=== PATIENT | male | born 1960 | race Caucasian/White ===

== ENCOUNTER 2017-09-21 01:13 | Inpatient (IN) | payer BC ==
[2017-09-21] VITALS (9 sets, daily range): BP systolic 83–129; BP diastolic 48–81
[~2017-09-21] VITALS: Ht 182.9 cm; Wt 113.5 kg
--- NOTE | ~2017-09-21 | WRIGHTHP ---
[place], [place] PATIENT HISTORY AND PHYSICAL EXAM NAME: IRAJ ESTEVES [facility] #: [id number] UNIT #: [id number] ROOM: [facility] DOCTOR: BETZAIDA MEJIA MD BIRTHDATE: [birth year] DOS: 09/21/2017 HISTORY OF PRESENT ILLNESS: The patient is 57 years old, not known to me. The patient of Dr. Rodrigues, comes in with complaints of shortness of breath. The patient states that he was shoveling snow a couple of days ago, felt extremely tired after that, had to sit down and experienced some shortness of breath. He also became nauseous and had large emesis after that. Yesterday, he started noticing shortness of breath as he was just sitting around. He denies having any fever, any chills, any cough, any chest pains or palpitations. He has had these symptoms for almost 6 months now. He has had multiple workups including stress test. Cardiology consultation with Dr. Torres and an echocardiogram which have all been normal. PAST MEDICAL HISTORY: Significant for: 1. Coronary artery disease and history of CABG. He also has history of stent placement. 2. Moderate nicotine abuse with smoking cessation 3 months ago. 3. Benign hypertension. 4. Primary osteoarthritis. MEDICATIONS: He is on currently are Plavix 75, gemfibrozil 600 b.i.d., propranolol 120 daily, 100 mg daily, simvastatin 40 daily, Carafate 1 gram t.i.d., allopurinol 300 mg daily. SOCIAL HISTORY: Heavy smoker, quit smoking 3 months ago. Denies using any alcohol. Significant for 4 siblings who are all healthy. 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 He works in the [employer]. He is . FAMILY HISTORY: Significant for father who was murdered when he was 10. His mother who of coronary artery disease. PHYSICAL EXAMINATION: GENERAL: Today, he is awake and alert and oriented. VITAL SIGNS: Blood pressure is 83/48, pulse of 58, respirations 18, temperature 96.3. LUNGS: Diminished breath sounds. No wheezes, rales or rhonchi heard. HEART: Regular. ABDOMEN: Soft. EXTREMITIES: Without any edema. LABORATORY DATA: EKG shows diffuse ST changes in the anteroseptal leads as well as the inferior leads. Rapid flu is positive. Troponin, the first set was 0.8, has gone up to 2.070 seconds and third set is 6.070. ASSESSMENT: 1. Non-ST elevation myocardial infarction. The patient is being placed on IV heparin protocol, IV nitro. Cardiology consultation was obtained. The patient prefers to go to [facility]. We will make arrangements for him to be transferred out. 2. Benign hypertension, controlled. [place], [place] PATIENT HISTORY AND PHYSICAL EXAM NAME: IRAJ ESTEVES UNIT #: [id number] ROOM: [facility] DOCTOR: BETZAIDA MEJIA MD BIRTHDATE: [birth year] 3. Coronary artery disease. Already on Plavix and aspirin, I have not made any changes in other regimen. 4. Flu positive. Tamiflu has been started. BETZAIDA MEJIA MD CM:HISPHYS:PATIENT HISTORY AND PHYSICAL EXAMINATION 0842 [id number] BETZAIDA MEJIA MD 09/21/17 09 interface
--- NOTE | ~2017-09-21 | EKG ---
[place], [place] ELECTROCARDIOGRAM REPORT NAME: IRAJ ESTEVES UNIT #: [id number] ROOM: [facility] DOCTOR: TREMAINE GONZALEZ,ENRIQUE BIRTHDATE: [birth year] DOS: TIME: 8:27 a.m. IMPRESSION: 1. Sinus rhythm. 2. Anterolateral ST changes, suggestive of ischemia. 3. Low voltage complexes. 4. Normal QT interval. ENRIQUE PENALOZA MD CM:EKGRPT:ELECTROCARDIOGRAM REPORT [id number] ENRIQUE PENALOZA MD
[~2017-09-21 01:13] MED LIST: ALLOPURINOL300 MG; ASCRIPTIN325 MG; ENALAPRIL MALEA10 MG; Fish Oil PO; GARLIC OIL1000 MG PO; GARLIC1000 MG; GEMFIBROZIL600 MG PO; GRAPE SEED PO; Garlic PO; METOPROLOL SR25 MG; OMEPRAZOLE20 MG; PLAVIX75 MG PO; PROPRANOLOL HY120 MG PO; RED YEAST RICE600 MG; Red Yeast Rice PO; VYTORIN 10 MG-41 TA1
[2017-09-21] MEDS ORDERED: SIMVASTATIN40 MG PO (01:25)
[2017-09-21] MEDS ORDERED: ASPIRIN CHEWABL81 MG PO (01:26)
[2017-09-21] MEDS ORDERED: RESVERATROL100 MG PO (01:28)
[2017-09-21] MEDS ORDERED: CARAFATE1 G1 PO (01:28)
[2017-09-21] MEDS ORDERED: VITAMIN D5000 UNI1 PO (01:28)
[2017-09-21 01:41] LABS: HEMATOCRIT 38.4 % (42.0-52.0); HEMOGLOBIN 12.2 g/dl (14.0-18.0); MEAN CELL VOLUME 85.7 fl (80.0-94.0); MEAN CORPUSCULAR HGB 27.2 pg (27.0-31.0); MEAN CORPUSCULAR HGB CONC 31.8 g/dl (33.0-37.0); MEAN PLATELET VOLUME 12.5 fl (9.6-12.3); PLATELET COUNT AUTOMATED 234 10*3/uL (130-400); RED BLOOD COUNT 4.48 10*6/uL (4.50-5.90); RED CELL DISTRI WIDTH 15.9 % (0-14.5); WHITE BLOOD COUNT 13.5 10*3/uL (4.8-10.8)
[2017-09-21 01:52] LABS: ACT PARTIAL THROMBO TIME 30.6 SECONDS (20.8-31.5); INTERNATIONAL NORM RATIO 1.1 (2.0-3.5)
[2017-09-21 02:00] LABS: ATYPICAL LYMPHS 3 % (0-0); BASOPHILS 2 % (0-1); PLATELET SUFFICIENCY NORMAL (NORMAL); TOTAL CELLS COUNTED 100 #CELLS
[2017-09-21 02:00] LABS: ALBUMIN 3.8 gm/dl (3.1-4.5); ALKALINE PHOSPHATASE 72 U/L (45-117); BUN 24 mg/dl (7-24); CHLORIDE 103 mmol/L (98-107); CREATININE 1.44 mg/dL (0.70-1.30); POTASSIUM 4.5 mmol/L (3.5-5.1); SGOT/AST 29 IU/L (3-35); SGPT/ALT 23 U/L (12-78); SODIUM 134 mmol/L (136-145); TOTAL PROTEIN 8.1 gm/dL (6.4-8.2)
[2017-09-21 02:03] LABS: TROPONIN I 0.081 ng/ml (<0.045)
[2017-09-21 02:05] LABS: ABG BASE EXCESS -3.3 mmol/L (-2.0-2.0); ABG HCO3 23.5 mmol/l (22-26); ABG O2 SATURATION 96.9 % (95-97); ARTERIAL BLOOD GAS PCO2 51.9 mmHg (35-45); ARTERIAL BLOOD GAS PH 7.276 (7.35-7.45)
== END 2017-09-21 10:40 | disposition short-term general hospital (02) | DRG 280 ==
LOC: ED 01:13 → ICCU 02:26
PROVIDERS: Student in an Organized Health Care Education/Training Program
PROC: 5A09357 Assistance with Respiratory Ventilation, Less than 24 Consecutive Hours, Continuous Positive Airway Pressure (ICD-10-PCS; principal; 2017-09-21)
DX: I21.4 Non-ST elevation (NSTEMI) myocardial infarction (principal); J96.90 Respiratory failure, unspecified, unspecified whether with hypoxia or hypercapnia; I10 Essential (primary) hypertension; I25.10 Atherosclerotic heart disease of native coronary artery without angina pectoris; M19.91 Primary osteoarthritis, unspecified site; J11.1 Influenza due to unidentified influenza virus with other respiratory manifestations; M10.9 Gout, unspecified; R73.9 Hyperglycemia, unspecified; D72.829 Elevated white blood cell count, unspecified; Z95.1 Presence of aortocoronary bypass graft; Z79.899 Other long term (current) drug therapy; Z87.891 Personal history of nicotine dependence; Z82.49 Family history of ischemic heart disease and other diseases of the circulatory system; Z90.89 Acquired absence of other organs; Z90.49 Acquired absence of other specified parts of digestive tract; Z95.5 Presence of coronary angioplasty implant and graft

== ENCOUNTER 2017-12-02 05:06 | Emergency (ER) | payer BC ==
[~2017-12-02] VITALS: Ht 180.3 cm; Wt 90.7 kg
[~2017-12-02 05:06] MED LIST changes: +ASPIRIN CHEWABL81 MG PO; +CARAFATE1 G1 PO; +RESVERATROL100 MG PO; +SIMVASTATIN40 MG PO; +VITAMIN D5000 UNI1 PO
[2017-12-02 05:25] LABS: BASO # 0.1 10*3/uL (0.0-0.1); BASO % 0.8 % (0.0-1.0); EOS # 0.2 10*3/uL (0.0-0.4); EOS % 2.6 % (1.0-4.0); HEMATOCRIT 22.5 % (42.0-52.0); LYMPH # 2.4 10*3/uL (1.3-4.4); LYMPH % 26.9 % (27.0-41.0); MEAN CELL VOLUME 84.6 fl (80.0-94.0); MEAN CORPUSCULAR HGB 26.3 pg (27.0-31.0); MEAN CORPUSCULAR HGB CONC 31.1 g/dl (33.0-37.0); MEAN PLATELET VOLUME 9.5 fl (9.6-12.3); NEUT # 5.2 10*3/uL (2.3-7.9); NEUT % 58.4 % (47.0-73.0); PLATELET COUNT AUTOMATED 261 10*3/uL (130-400); RED BLOOD COUNT 2.66 10*6/uL (4.50-5.90); RED CELL DISTRI WIDTH 16.6 % (0-14.5); WHITE BLOOD COUNT 8.9 10*3/uL (4.8-10.8)
[2017-12-02 05:35] LABS: ACT PARTIAL THROMBO TIME 26.5 SECONDS (20.8-31.5)
[2017-12-02] MEDS ORDERED: XIFAXAN550 MG PO (05:39)
[2017-12-02] MEDS ORDERED: ALPRAZOLAM0.5 M3 PO (05:39)
[2017-12-02] MEDS ORDERED: ZOLOFT50 MG PO (05:39)
[2017-12-02 05:41] LABS: ALBUMIN 3.9 gm/dl (3.1-4.5); CREATININE 1.93 mg/dL (0.70-1.30); POTASSIUM 4.4 mmol/L (3.5-5.1); TOTAL PROTEIN 7.8 gm/dL (6.4-8.2)
[2017-12-02] MEDS ORDERED: FUROSEMIDE40 MG PO (05:41)
[2017-12-02] MEDS ORDERED: BRILINTA90 M1 PO (05:41)
[2017-12-02] MEDS ORDERED: TOPROL XL25 MG PO (05:42)
[2017-12-02 05:43] LABS: TROPONIN I 0.612 ng/ml (<0.045)
[2017-12-02 06:36] VITALS: BP 110/57
== END 2017-12-02 06:43 | disposition short-term general hospital (02) ==
LOC: ED 05:06
PROVIDERS: Emergency Medicine Emergency Medical Services
DX: R07.89 Other chest pain (principal); I25.10 Atherosclerotic heart disease of native coronary artery without angina pectoris; I50.9 Heart failure, unspecified; I10 Essential (primary) hypertension; M10.9 Gout, unspecified; Z87.891 Personal history of nicotine dependence; Z79.899 Other long term (current) drug therapy; Z79.82 Long term (current) use of aspirin

== ENCOUNTER → 2017-12-22 | Outpatient (CLI) | payer BC ==
[~2017-12-22] MED LIST changes: +ALPRAZOLAM0.5 M3 PO; +BRILINTA90 M1 PO; +FUROSEMIDE40 MG PO; +TOPROL XL25 MG PO; +XIFAXAN550 MG PO; +ZOLOFT50 MG PO
== END | disposition home or self-care (01) ==
LOC: LAB 15:18
DX: D64.9 Anemia, unspecified (principal); K92.2 Gastrointestinal hemorrhage, unspecified

== ENCOUNTER 2018-01-09 23:12 | Inpatient (IN) | payer BC ==
[~2018-01-09] VITALS: Ht 182.9 cm; Wt 120.3 kg
--- NOTE | ~2018-01-09 | DS ---
[place], [place] DISCHARGE SUMMARY [id number] UN[facility] #: [id number] ROOM: 406 DOCTOR: RODOLFO GONZALEZDINORA Marin BIRTHDATE: [birth year] DOS: 01/11/2018 DISCHARGE DIAGNOSES: 1. Chest pains related to advanced coronary artery disease and anemia, resolved. 2. History of chronic gouty arthritis. 3. Mixed hyperlipidemia. 4. Generalized anxiety disorder. 5. Morbid obesity and poor compliance with diet. 6. Coronary artery disease and coronary artery bypass grafts in 1998 with stent placements in September 2017. 7. Hiatal hernia with gastroesophageal reflux disease and esophagitis. 8. Benign essential hypertension. HOSPITAL COURSE: The patient presented with right-sided chest pains, some nausea, but no diaphoresis. The patient ruled out for myocardial infarction with serial cardiac enzymes and he was given blood transfusions for anemia and patient's chest pains resolved. The patient was seen by Dr. Alex Tinoco and no further intervention was recommended. The patient is being discharged to home to follow up at the office with me on Sunday. Anemia related to recent GI bleed, treated with transfusion with 2 units of blood because of his angina symptoms, which have resolved. Chronic gouty arthritis, asymptomatic. The patient treated with allopurinol. Mixed hyperlipidemia, has been treated with simvastatin. Coronary artery disease of the havasupai vessels with stent placements. The is patient on Brilinta. Generalized anxiety disorder, treated and controlled with Xanax. LABORATORY DATA: All cardiac enzymes are negative. Hemoglobin improved to 9.5 with blood transfusion. Normal serum electrolytes. DISCHARGE MANAGEMENT: Simvastatin 40 mg a day, aspirin 81 mg a day, sublingual nitroglycerins p.r.n., Brilinta 90 mg b.i.d., vitamin D 5000 units daily, allopurinol 300 mg daily, Ranexa 500 mg b.i.d., metoprolol 25 mg daily, lisinopril 10 mg daily, gemfibrozil 600 mg b.i.d., furosemide 40 mg a day, Xanax 0.5 mg b.i.d. p.r.n. for anxiety. FOLLOWUP: On Sunday. [place], [place] DISCHARGE SUMMARY NAME: IRAJ ESTEVES UNIT #: [id number] ROOM: [facility] DOCTOR: DINORA REYNOLDS MD BIRTHDATE: [birth year] DINORA REYNOLDS MD CM:GETACHEW 10 27 DINORA REYNOLDS MD 01/11/181926 interface
--- NOTE | ~2018-01-09 | WRIGHTHP ---
[place], [place] PATIENT HISTORY AND PHYSICAL EXAM NAME: IRAJ ESTEVES [facility] #: [id number] UNIT #: [id number] ROOM: 406 DOCTOR: DINORA REYNOLDS MD BIRTHDATE: [birth year] DOS: 01/10/2018 HISTORY OF PRESENT ILLNESS: 1. The patient is a 57-year-old gentleman with a past medical history of severe coronary artery disease with coronary artery bypass graft in 1998, cardiac stents following that and history of acute [place] in 09/2017. 2. Hiatal hernia. 3. Morbid obesity. 4. GERD and esophagitis. 5. Chronic gouty arthritis. 6. Benign essential hypertension. 7. Mixed hyperlipidemia. The patient presented to the Emergency Department with right-sided chest pains, which were recurrent, some nausea, no diaphoresis, but he did have shortness of breath. The patient was evaluated in the Emergency Department. There were also some complaints of nonradiating left shoulder pains. The patient thought his pains may be related to anemia, which he had since his recent GI bleed. REVIEW OF SYSTEMS: LUNGS: Some complaints of shortness of breath. GASTROINTESTINAL: Some nausea, no other symptoms. CARDIOVASCULAR: Right-sided chest pains. HOME MEDICATIONS: Xanax, lisinopril, Ranexa, nitroglycerin, allopurinol, simvastatin, furosemide, Brilinta, gemfibrozil, metoprolol, aspirin. PHYSICAL EXAMINATION: GENERAL: Alert and oriented x 3, morbidly obese. VITAL SIGNS: Blood pressure 124/62, heart rate is 68 beats per minute, breathing 18 times per minute, temperature 98.1 degrees Fahrenheit. HEENT AND NECK: Extraocular movements are intact. Sclerae are anicteric. Oral mucosa is moist and clean. No obvious facial weakness. Neck is supple without any lymphadenopathy. No thyromegaly. No JVD. No carotid arterial bruits. LUNGS: Clear to auscultation. No wheezing. No rhonchi. CARDIOVASCULAR SYSTEM: Heart rate is regular in rate and rhythm. S1 and S2 normally audible. No significant murmur or any other abnormal cardiac sounds. ABDOMEN: Soft, nontender. No obvious organomegaly. Bowel sounds are present. No obvious herniation. EXTREMITIES: Without significant cyanosis or edema. Warm to touch. CENTRAL NERVOUS SYSTEM: Alert and oriented x 3. Cranial nerves II-XII are intact. Speech is normal. The patient is able to move all extremities. Normal muscle strength. Deep tendon reflexes are equal on both sides. Plantars were downgoing. LABORATORY DATA: Three sets of cardiac enzymes have been negative. White blood cell count 11,200, hemoglobin 7.4. IMPRESSION: 1. The patient with anemia and recurrent right-sided chest pains with history [place], [place] PATIENT HISTORY AND PHYSICAL EXAM [id number] #: [id number] ROOM: [facility] DOCTOR: DINORA REYNOLDS MD BIRTHDATE: 60 of severe coronary artery disease with 2 recent heart catheterizations and a recent stent placement at [facility] I am consulting freight handler, Dr. Alex Tinoco to see the patient and his cardiac enzymes have been negative and he is already adequately anticoagulated and on appropriate medications for his coronary artery disease. The patient takes Ranexa, simvastatin, Brilinta, metoprolol, lisinopril. The patient is being closely monitored in [place] [facility]. 2. Chronic gouty arthritis treated and asymptomatic with allopurinol. 3. Mixed hyperlipidemia treated with simvastatin. 4. The patient had drug-eluting stent placement, remains on Brilinta. 5. Generalized anxiety disorder treated and controlled with Xanax as needed. DINORA REYNOLDS MD CM:HISPHYS:PATIENT HISTORY AND PHYSICAL EXAMINATION 3 4 DINORA REYNOLDS MD 01/10/1834 interface
[2018-01-09 23:13] VITALS: BP 136/56
[2018-01-09 23:29] LABS: BASO # 0.1 10*3/uL (0.0-0.1); BASO % 0.5 % (0.0-1.0); EOS # 0.2 10*3/uL (0.0-0.4); HEMATOCRIT 23.5 % (42.0-52.0); HEMOGLOBIN 7.4 g/dl (14.0-18.0); LYMPH # 2.1 10*3/uL (1.3-4.4); LYMPH % 18.6 % (27.0-41.0); MEAN CELL VOLUME 76.3 fl (80.0-94.0); MEAN CORPUSCULAR HGB CONC 31.5 g/dl (33.0-37.0); MEAN PLATELET VOLUME 9.8 fl (9.6-12.3); MONO # 1.1 10*3/uL (0.1-1.0); MONO % 9.9 % (3.0-9.0); NEUT # 7.7 10*3/uL (2.3-7.9); NEUT % 68.6 % (47.0-73.0); PLATELET COUNT AUTOMATED 270 10*3/uL (130-400); RED BLOOD COUNT 3.08 10*6/uL (4.50-5.90); RED CELL DISTRI WIDTH 17.4 % (0-14.5); WHITE BLOOD COUNT 11.2 10*3/uL (4.8-10.8)
[2018-01-09 23:40] LABS: ACT PARTIAL THROMBO TIME 27.2 SECONDS (20.8-31.5); INTERNATIONAL NORM RATIO 1.1 (2.0-3.5)
[2018-01-09 23:46] LABS: ALBUMIN 3.7 gm/dl (3.1-4.5); ALKALINE PHOSPHATASE 81 U/L (45-117); BUN 24 mg/dl (7-24); CHLORIDE 100 mmol/L (98-107); CREATININE 1.34 mg/dL (0.70-1.30); POTASSIUM 3.9 mmol/L (3.5-5.1); SGOT/AST 17 IU/L (3-35); SGPT/ALT 16 U/L (12-78); SODIUM 132 mmol/L (136-145); TOTAL PROTEIN 7.9 gm/dL (6.4-8.2)
[2018-01-09 23:52] LABS: TROPONIN I < 0.015 ng/ml (<0.045)
[2018-01-10] VITALS (17 sets, daily range): BP systolic 105–141; BP diastolic 50–84
[2018-01-10] MEDS ORDERED: LISINOPRIL10 M1 PO (03:11)
[2018-01-10] MEDS ORDERED: RANEXA500 M1 PO (03:12)
[2018-01-10] MEDS ORDERED: NITROGLYCERIN0.4 MG SL (03:14)
[2018-01-11] VITALS: BP 98/35
[2018-01-11 00:44] LABS: ALBUMIN 3.4 gm/dl (3.1-4.5); ALKALINE PHOSPHATASE 80 U/L (45-117); BUN 22 mg/dl (7-24); CHLORIDE 103 mmol/L (98-107); CREATININE 1.21 mg/dL (0.70-1.30); SGOT/AST 14 IU/L (3-35); SGPT/ALT 15 U/L (12-78); SODIUM 137 mmol/L (136-145); TOTAL PROTEIN 7.6 gm/dL (6.4-8.2)
[2018-01-11 03:54] VITALS: BP 103/56
[2018-01-11 05:53] LABS: BUN 24 mg/dl (7-24); CHLORIDE 101 mmol/L (98-107); CREATININE 1.21 mg/dL (0.70-1.30); POTASSIUM 4.3 mmol/L (3.5-5.1); SODIUM 136 mmol/L (136-145)
[2018-01-11 06:10] LABS: BASO # 0.1 10*3/uL (0.0-0.1); BASO % 0.9 % (0.0-1.0); EOS # 0.4 10*3/uL (0.0-0.4); EOS % 4.2 % (1.0-4.0); LYMPH # 1.7 10*3/uL (1.3-4.4); LYMPH % 18.4 % (27.0-41.0); MEAN CELL VOLUME 78.6 fl (80.0-94.0); MEAN CORPUSCULAR HGB 24.5 pg (27.0-31.0); MEAN CORPUSCULAR HGB CONC 31.1 g/dl (33.0-37.0); MEAN PLATELET VOLUME 10.1 fl (9.6-12.3); MONO % 10.5 % (3.0-9.0); NEUT # 6.2 10*3/uL (2.3-7.9); NEUT % 65.7 % (47.0-73.0); PLATELET COUNT AUTOMATED 271 10*3/uL (130-400); RED BLOOD COUNT 3.88 10*6/uL (4.50-5.90); RED CELL DISTRI WIDTH 17.2 % (0-14.5); WHITE BLOOD COUNT 9.5 10*3/uL (4.8-10.8)
[2018-01-11 06:27] LABS: HEMATOCRIT 30.5 % (42.0-52.0); HEMOGLOBIN 9.5 g/dl (14.0-18.0)
[2018-01-11 08:00] VITALS: BP 105/49
[2018-01-11] MEDS ORDERED: OMEPRAZOLE MAGN20 MG PO (08:49)
[2018-01-11] MEDS ORDERED: PROAIR HFA8.5 GM INH (08:49)
[2018-01-11 12:00] VITALS: BP 116/47
[2018-01-11 16:00] VITALS: BP 110/56
== END 2018-01-11 19:55 | disposition home or self-care (01) | DRG 812 ==
LOC: ED 23:12 → 4E 01-10 02:14 → EDHOLD 01-10 02:14 → 4E 01-10 02:36
PROVIDERS: Emergency Medicine; Internal Medicine; Internal Medicine Cardiovascular Disease
PROC: 30233N1 Transfusion of Nonautologous Red Blood Cells into Peripheral Vein, Percutaneous Approach (ICD-10-PCS; principal; 2018-01-10)
DX: D50.9 Iron deficiency anemia, unspecified (principal); E66.01 Morbid (severe) obesity due to excess calories; E87.2 Acidosis; E87.1 Hypo-osmolality and hyponatremia; E83.42 Hypomagnesemia; I25.810 Atherosclerosis of coronary artery bypass graft(s) without angina pectoris; I50.22 Chronic systolic (congestive) heart failure; I13.0 Hypertensive heart and chronic kidney disease with heart failure and stage 1 through stage 4 chronic kidney disease, or unspecified chronic kidney disease; N18.3 Chronic kidney disease, stage 3 (moderate); R07.9 Chest pain, unspecified; Z96.651 Presence of right artificial knee joint; K21.0 Gastro-esophageal reflux disease with esophagitis; M1A.9XX0 Chronic gout, unspecified, without tophus (tophi); F41.1 Generalized anxiety disorder; D72.810 Lymphocytopenia; Z90.49 Acquired absence of other specified parts of digestive tract; Z95.1 Presence of aortocoronary bypass graft; Z87.891 Personal history of nicotine dependence; Z82.49 Family history of ischemic heart disease and other diseases of the circulatory system; Z68.34 Body mass index [BMI] 34.0-34.9, adult

== ENCOUNTER → 2018-02-11 | Outpatient (CLI) | payer BC ==
[~2018-02-11] MED LIST changes: +LISINOPRIL10 M1 PO; +NITROGLYCERIN0.4 MG SL; +OMEPRAZOLE MAGN20 MG PO; +PROAIR HFA8.5 GM INH; +RANEXA500 M1 PO
[2018-02-11 13:42] LABS: IRON 43 ug/dL (65-175); TOTAL IRON BINDING CAPACITY 498 ug/dl (250-450)
== END | disposition home or self-care (01) ==
LOC: LAB 12:55
PROVIDERS: Internal Medicine Gastroenterology
DX: D50.9 Iron deficiency anemia, unspecified (principal)

== ENCOUNTER 2018-12-31 20:27 | Emergency (ER) | payer BC ==
[~2018-12-31] VITALS: Ht 182.8 cm; Wt 120.2 kg
--- NOTE | ~2018-12-31 | EKG ---
[place], [place] ELECTROCARDIOGRAM REPORT NAME: IRAJ ESTEVES UNIT #: [id number] ROOM: DOCTOR: EPIPHCHARLES DRAFT REPORT BIRTHDATE: [birth year] [facility] Test Date: 2018-12-31 Test Time: 20:31:23 Pat Name: IRAJ ESTEVES Department: ED Room: Gender: Germ Drier: Alex Juarez : 1960 Requested By: DIANNE RUSS Order Number: [id number] Reading MD: Ignacio Corey MD Measurements Intervals [place] Rate: 94 P: 21 [place]: 171 QRS: 34 QRSD: 115 T: 164 QT: 334 QTc: 418 Interpretive Statements Sinus tachycardia Multiple premature complexes, vent \T\ supraven Nonspecific intraventricular conduction delay Anteroseptal infarct, age indeterminate Lateral leads are also involved Electronically Signed On 01-03-2019 9:28:36 PDT by Ignacio Corey MD CM:EKGRPT:ELECTROCARDIOGRAM REPORT 30 7 DIANNE BAH DRAFT REPORT DIANNE RUSS DO
[2018-12-31 20:48] LABS: BASO # 0.1 10*3/uL (0.0-0.1); BASO % 0.7 % (0.0-1.0); EOS # 0.2 10*3/uL (0.0-0.4); EOS % 1.9 % (1.0-4.0); HEMATOCRIT 43.1 % (42.0-52.0); HEMOGLOBIN 13.9 g/dl (14.0-18.0); LYMPH % 28.4 % (27.0-41.0); MEAN CELL VOLUME 84.8 fl (80.0-94.0); MEAN CORPUSCULAR HGB 27.4 pg (27.0-31.0); MEAN CORPUSCULAR HGB CONC 32.3 g/dl (33.0-37.0); MEAN PLATELET VOLUME 11.3 fl (9.6-12.3); MONO # 0.9 10*3/uL (0.1-1.0); MONO % 8.2 % (3.0-9.0); NEUT # 6.5 10*3/uL (2.3-7.9); NEUT % 60.5 % (47.0-73.0); PLATELET COUNT AUTOMATED 176 10*3/uL (130-400); RED BLOOD COUNT 5.08 10*6/uL (4.50-5.90); RED CELL DISTRI WIDTH 15.7 % (0-14.5); WHITE BLOOD COUNT 10.7 10*3/uL (4.8-10.8)
[2018-12-31 20:58] LABS: ACT PARTIAL THROMBO TIME 28.7 SECONDS (20.8-31.5); INTERNATIONAL NORM RATIO 1.1 (2.0-3.5)
[2018-12-31 21:04] LABS: ALBUMIN 3.9 gm/dl (3.1-4.5); ALKALINE PHOSPHATASE 78 U/L (45-117); BUN 17 mg/dl (7-24); CHLORIDE 103 mmol/L (98-107); CREATININE 1.32 mg/dL (0.70-1.30); POTASSIUM 3.6 mmol/L (3.5-5.1); SGOT/AST 45 IU/L (3-35); SGPT/ALT 44 U/L (12-78); SODIUM 136 mmol/L (136-145); TOTAL PROTEIN 7.9 gm/dL (6.4-8.2)
[2018-12-31 21:18] LABS: TROPONIN I 0.249 ng/ml (<0.045)
[2018-12-31 22:30] VITALS: BP 136/61
== END 2018-12-31 22:34 | disposition short-term general hospital (02) ==
LOC: ED 20:27
PROVIDERS: Student in an Organized Health Care Education/Training Program
DX: I24.9 Acute ischemic heart disease, unspecified (principal); E66.01 Morbid (severe) obesity due to excess calories; I25.2 Old myocardial infarction; K21.9 Gastro-esophageal reflux disease without esophagitis; M10.9 Gout, unspecified; I13.0 Hypertensive heart and chronic kidney disease with heart failure and stage 1 through stage 4 chronic kidney disease, or unspecified chronic kidney disease; N18.9 Chronic kidney disease, unspecified; I50.9 Heart failure, unspecified; Z87.891 Personal history of nicotine dependence; Z95.1 Presence of aortocoronary bypass graft; Z95.5 Presence of coronary angioplasty implant and graft; Z98.890 Other specified postprocedural states; Z90.49 Acquired absence of other specified parts of digestive tract; Z79.82 Long term (current) use of aspirin; Z79.899 Other long term (current) drug therapy